=== PATIENT | female | born 1950 | race Hispanic/Latino ===

== ENCOUNTER 2018-06-20 13:45 | Inpatient (IN) | payer MEDICARE ==
[2018-06-20 16:38] LABS: Bacteria,Urine 2+ /HPF (Negative); Bilirubin,Urine NEG (Negative); Blood,Urine SM (Negative); Color,Urine Yellow (Yellow); Mucus,Urine FEW /HPF; Urobilinogen,Urine < 2.0 mg/dL (<2.0)
[2018-06-20 16:40] LABS: WBC,Urine > 182.0 /HPF (0.0-6.0)
--- NOTE | 2018-06-20 16:40 | XRay Report ---
FINAL REPORT EXAM: XR FOREARM RT HISTORY: right forearm, wrist pain TECHNIQUE: Two views right forearm Comparison: None FINDINGS: Mild osteopenia. No fracture or dislocation identified. No radiopaque foreign body or soft tissue gas. IMPRESSION: No acute plain film abnormality.
[2018-06-20 16:41] LABS: Basophils # (Auto) 0.1 K/mm3 (0.0-0.1); Eosinophils # (Auto) 0.1 K/mm3 (0.0-0.4); Hematocrit 35.8 % (30.3-42.9); Hemoglobin 12.4 gm/dl (10.1-14.3); Lymphocytes # (Auto) 2.9 K/mm3 (1.2-5.4); Lymphocytes % (Auto) 39.2 % (13.4-35.0); Mean Corpuscular HGB Conc 35 % (30-34); Mean Corpuscular Hemoglobin 31 pg (28-32); Mean Corpuscular Volume 90 fl (79-97); Monocytes # (Auto) 0.7 K/mm3 (0.0-0.8); Monocytes % (Auto) 9.9 % (0.0-7.3); Platelet Count 218 K/mm3 (140-440); Red Blood Count 3.98 M/mm3 (3.65-5.03)
[2018-06-20 16:41] LABS: Amphetamine Screen,Urine PRESUMPTIVE NEGATIVE; Benzodiazepines Screen,Urine PRESUMPTIVE NEGATIVE; Cannabinoid Screen,Urine PRESUMPTIVE NEGATIVE; Cocaine Screen,Urine PRESUMPTIVE NEGATIVE; Methadone Screen,Urine PRESUMPTIVE NEGATIVE; Opiate Screen,Urine PRESUMPTIVE NEGATIVE
[2018-06-20 16:57] LABS: BUN/Creatinine Ratio 17; Blood Urea Nitrogen 12 mg/dL (7-17); Calcium 9.4 mg/dL (8.4-10.2); Hemolysis Index 1
[2018-06-20 16:59] LABS: Albumin 4.1 g/dL (3.9-5); Bilirubin,Direct 0.2 mg/dL (0-0.2)
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
[2018-06-20] MEDS ORDERED: K-DUR PO ONE ×2 (17:29→19:58)
[2018-06-20] MEDS: MACROBID PO SCH ×2 (17:50→22:31)
--- NOTE | 2018-06-20 21:21 | Cat Scan Report ---
FINAL REPORT EXAM: CT HEAD/BRAIN WO CON HISTORY: AMS TECHNIQUE: 2.5 millimeter axial images from the skullbase to the vertex. Comparison: None FINDINGS: Are 2 small foci of decreased density in the left superior frontal lobe cortex without evidence of volume loss. These may represent small foci of acute cortical infarct. There is no evidence of intracranial hemorrhage or significant mass effect. Ventricular size is concordant with the degree of atrophy. The visualized portions of the orbits, paranasal and mastoid sinuses are unremarkable. The bony structures are unremarkable in appearance. IMPRESSION: 1. Two small foci of low attenuation in the cortex of the left superior frontal lobe which may represent 2 small foci of acute infarcts. If there is a clinical suspicion of acute cerebral ischemia and if there is no clinical contraindication, MRI brain may be helpful.
[2018-06-20] MEDS ORDERED: ZOFRAN IV PRN (23:19)
[2018-06-20] MEDS ORDERED: SODIUM CHLORIDE FLUSH SYRINGE 10 ML IV PRN (23:19)
[2018-06-20] MEDS ORDERED: MILK OF MAGNESIA PO PRN (23:19)
[2018-06-20] MEDS ORDERED: DULCOLAX PR PRN (23:19)
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
[2018-06-21 00:15] LABS: Creatine Kinase MB 4.4 ng/mL (0.0-4.0)
[2018-06-21 05:59] LABS: Creatine Kinase MB 3.7 ng/mL (0.0-4.0)
[2018-06-21 06:02] LABS: Chol/HDL Ratio 2.15 %
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
[2018-06-21] MEDS: TYLENOL PO PRN (11:22)
[2018-06-21] MEDS: ROCEPHIN/NS 1 GM/50 ML 1 GM/50 ML BAG IV SCH (11:22)
[2018-06-21] MEDS: MACROBID PO SCH ×2 (11:22→22:59)
[2018-06-21] MEDS: ASPIRIN PO SCH (11:22)
[2018-06-21 12:20] LABS: BUN/Creatinine Ratio 18; Blood Urea Nitrogen 11 mg/dL (7-17); Calcium 9.4 mg/dL (8.4-10.2); Hemolysis Index 34
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
[2018-06-21] MEDS: VALIUM PO SCH (18:00)
[2018-06-21] MEDS: HALDOL IM PRN (21:43)
[2018-06-21] MEDS: ARICEPT PO SCH (22:59)
[2018-06-22] MEDS: TYLENOL PO PRN ×3 (08:50→21:46)
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
[2018-06-22] MEDS: ROCEPHIN/NS 1 GM/50 ML 1 GM/50 ML BAG IV SCH (10:22)
[2018-06-22] MEDS: ASPIRIN PO SCH (10:57)
[2018-06-22] MEDS: VALIUM PO SCH (10:57)
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
[2018-06-22] MEDS ORDERED: LEVAQUIN PO ONE (17:00)
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
[2018-06-22] MEDS ORDERED: VALIUM PO ONE (21:00)
[2018-06-22] MEDS: ARICEPT PO SCH (21:46)
[2018-06-23] MEDS: VALIUM PO SCH (09:52)
[2018-06-23] MEDS: ASPIRIN PO SCH (09:52)
[2018-06-23] MEDS: ROCEPHIN/NS 1 GM/50 ML 1 GM/50 ML BAG IV SCH (09:52)
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
[2018-06-23] MEDS: TYLENOL PO PRN (11:33)
--- NOTE | 2018-06-23 17:39 | Cat Scan Report ---
FINAL REPORT EXAM: CT HEAD/BRAIN WO/W CON HISTORY: CVA TECHNIQUE: Precontrast 2.5 millimeter axial images from the skullbase to the vertex. Following IV administration of 100 cc of Omnipaque 300 2.5 millimeter axial images were obtained from the skullbase to the vertex. Comparison: None FINDINGS: There is no evidence of an acute intracranial process, intracranial hemorrhage or mass effect. Low attenuation in the subcortical and deep white matter of the cerebral hemispheres most likely represent areas of chronic post ischemic demyelination/small vessel disease. However, a small focus of acute white matter ischemia cannot entirely be excluded. There are no areas of abnormal enhancement and no evidence of intracranial mass. Ventriculomegaly appears to be concordant with the degree of atrophy. There is atherosclerotic vascular calcification of the internal carotid arteries bilaterally at the skullbase. The visualized portions of the orbits, paranasal and mastoid sinuses are unremarkable. The bony structures are unremarkable in appearance. IMPRESSION: 1. No evidence of an acute intracranial process, intracranial hemorrhage or mass effect. If there is a clinical suspicion of acute cerebral ischemia and if MRI cannot be obtained, short-term follow-up CT imaging may be helpful. Alternatively if there is no clinical contraindication, MRI brain may be helpful. 2. Cerebral atrophy. 3. Atherosclerotic vascular calcification.
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
[2018-06-23] MEDS: ARICEPT PO SCH (22:10)
[2018-06-23] MEDS: HALDOL IM PRN (22:25)
[2018-06-24] MEDS: ASPIRIN PO SCH (10:48)
[2018-06-24] MEDS: ROCEPHIN/NS 1 GM/50 ML 1 GM/50 ML BAG IV SCH (10:48)
[2018-06-24] MEDS: VALIUM PO SCH (10:48)
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
[2018-06-24] MEDS: HALDOL IM PRN (18:04)
[2018-06-24] MEDS: TYLENOL PO PRN (21:52)
[2018-06-24] MEDS: ARICEPT PO SCH (21:52)
[2018-06-25] MEDS: VALIUM PO SCH (10:09)
[2018-06-25] MEDS: ASPIRIN PO SCH (10:09)
[2018-06-25] MEDS: ROCEPHIN/NS 1 GM/50 ML 1 GM/50 ML BAG IV SCH (10:55)
[2018-06-25 13:10] VITALS: BP 151/70
[2018-06-27 08:43] LABS: Albumin 3.9 g/dL (3.8-4.8); Gamma Globulin 0.9 g/dL (0.8-1.7)
== END 2018-06-25 14:35 | DRG 64 ==
LOC: ED 13:45 → 4A 23:19 → 2B-ACE 06-22 14:38
PROVIDERS: ADMIT Internal Medicine; ATTEND Internal Medicine
DX: I63.9 Cerebral infarction, unspecified (principal); G93.41 Metabolic encephalopathy; R65.10 Systemic inflammatory response syndrome (SIRS) of non-infectious origin without acute organ dysfunction; N30.00 Acute cystitis without hematuria; F29 Unspecified psychosis not due to a substance or known physiological condition; F32.9 Major depressive disorder, single episode, unspecified; F41.9 Anxiety disorder, unspecified; G35 Multiple sclerosis; Z90.49 Acquired absence of other specified parts of digestive tract; Z90.89 Acquired absence of other organs; Z79.899 Other long term (current) drug therapy; Z82.49 Family history of ischemic heart disease and other diseases of the circulatory system; Z90.710 Acquired absence of both cervix and uterus; Z82.0 Family history of epilepsy and other diseases of the nervous system
CPT/HCPCS: 36415; 70450; 70470; 80048; 80061; 80074; 80307; 80320; 81001; 82550; 82553; 82607; 84165; 84443; 84484; 85025; 85613; 93005; 93010; 93306; 93880; 99285; A9270-GY; G0480; G8978-GP; G8979-GP; J0696; J1630; Q9967